=== PATIENT | male | born 1950 | race Two or more races ===

== ENCOUNTER 2023-09-15 17:34 | Emergency (ER) | payer OTHER ==
[~2023-09-15] VITALS: Ht 170.2 cm; Wt 79.9 kg
[~2023-09-15 17:34] MED LIST: AML5T PO; AUG875T PO; BLOO1KIT60 XX; HYDR-4297 PO; LINA5TAB PO; TAMS-35 PO
[2023-09-15] MEDS ORDERED: ACETAMINOPHEN 500 MG TAB PO ONE (19:00)
[2023-09-15 19:25] LABS: Basophils # (auto) 0 10 ^3/uL (0-0.2); Basophils % (auto) 0.3 % (0.0-2.0); Eosinophils # (auto) 0.1 10 ^3/uL (0-0.8); Eosinophils % (auto) 1.1 % (0.0-7.0); Hematocrit 40.7 % (41.0-53.0); Lymphocytes # (auto) 0.5 10 ^3/uL (0.4-5.4); Lymphocytes % (auto) 5.4 % (10.0-50.0); Mean Corpuscular Hemoglobin 29.9 pg (28.0-32.0); Mean Corpuscular Hgb Conc. 34.5 g/dL (32.0-36.0); Mean Corpuscular Volume 86.8 fL (80.0-100.0); Monocytes % (auto) 11.1 % (0.0-12.0); Neutrophils # (auto) 7.1 10 ^3/uL (1.6-8.6); Neutrophils % (auto) 82.1 % (37.0-80.0); Red Blood Cells 4.69 10^6/uL (4.5-5.90); Red Cell Distribution Width 13.2 % (11.8-14.3); White Blood Cell 8.7 10^3/uL (4.4-10.8)
[2023-09-15 19:38] LABS: Alanine Aminotransferase 27 U/L (7-40); Albumin 3.9 g/dL (3.2-4.8); Alkaline Phosphatase 117 U/L (46-116); Anion Gap 7 (5-15); Aspartate Aminotransferase 28 U/L (13-40); BUN/Creatinine Ratio 9.8 (10.0-20.0); Bilirubin, Total 0.9 mg/dL (0.2-1.0); Blood Urea Nitrogen 12 mg/dL (9-23); Calcium 8.5 mg/dL (8.7-10.4); Carbon Dioxide 24 mmol/L (20-30); Chloride 100 mmol/L (98-107); Glucose 163 mg/dL (74-106); Lipase 55 U/L (12-53); Potassium 3.9 mmol/L (3.5-5.1); Sodium 131 mmol/L (136-145); Total Protein 6.5 g/dL (5.7-8.2)
[2023-09-15 22:26] LABS: Urine Bacteria NONE SEEN /hpf (None Seen); Urine Blood TRACE /uL (Negative); Urine Clarity Clear (Clear); Urine Color Yellow (Yellow); Urine Protein, UAD 1+ (Negative); Urine Specific Gravity 1.015 (1.001-1.035); Urine Urobilinogen Normal (Negative); Urine WBC 49 /hpf (0 - 3)
[2023-09-15 22:32] VITALS: PULSE 85; RESP 18; O2SAT 96
[2023-09-15 22:42] LABS: COVID19 ANTIGEN SOFIA FIA NEGATIVE (NEGATIVE); Rapid Influenza A Negative (Negative); Rapid Influenza B Negative (Negative)
[2023-09-15] MEDS ORDERED: IBUPROFEN 600 MG TAB PO ONE (23:45)
[2023-09-15] MEDS ORDERED: ACET500T58 PO (23:52)
[2023-09-15] MEDS ORDERED: LEVO750T8 PO (23:52)
[2023-09-16 00:24] VITALS: BP 129/54; PULSE 67; RESP 20; TEMP 98.6; O2SAT 97
== END 2023-09-16 00:28 | disposition home or self-care (01) ==
LOC: ER 17:34
DX: N30.90 Cystitis, unspecified without hematuria (principal); N40.1 Benign prostatic hyperplasia with lower urinary tract symptoms; N13.8 Other obstructive and reflux uropathy; R51.9 Headache, unspecified; Z79.899 Other long term (current) drug therapy; Z20.822 Contact with and (suspected) exposure to COVID-19
CPT/HCPCS: 36415; 70450; 71250; 74176; 80053; 81001; 83690; 84484; 85025; 87426; 87804; 93005

== ENCOUNTER 2023-09-21 02:07 | Emergency (ER) | payer OTHER ==
[~2023-09-21] VITALS: Ht 170.2 cm; Wt 88.0 kg
[~2023-09-21 02:07] MED LIST changes: +ACET500T58 PO; +LEVO750T8 PO
[2023-09-21] MEDS ORDERED: SODIUM CHLORIDE 0.9% 1,000 ML IV ONE ×2 (02:30→07:45)
[2023-09-21 02:58] LABS: Basophils # (auto) 0 10 ^3/uL (0-0.2); Basophils % (auto) 0.1 % (0.0-2.0); Eosinophils # (auto) 0.1 10 ^3/uL (0-0.8); Eosinophils % (auto) 0.9 % (0.0-7.0); Hematocrit 44.4 % (41.0-53.0); Hemoglobin 14.9 g/dL (13.5-17.5); Lymphocytes # (auto) 0.4 10 ^3/uL (0.4-5.4); Lymphocytes % (auto) 2.9 % (10.0-50.0); Mean Corpuscular Hemoglobin 28.8 pg (28.0-32.0); Mean Corpuscular Hgb Conc. 33.5 g/dL (32.0-36.0); Mean Corpuscular Volume 86.1 fL (80.0-100.0); Monocytes # (auto) 0.9 10 ^3/uL (0-1.3); Monocytes % (auto) 6.9 % (0.0-12.0); Neutrophils # (auto) 12.2 10 ^3/uL (1.6-8.6); Neutrophils % (auto) 89.2 % (37.0-80.0); Nucleated Red Blood Cells % 0.1 %; Red Blood Cells 5.16 10^6/uL (4.5-5.90); Red Cell Distribution Width 13.2 % (11.8-14.3); White Blood Cell 13.7 10^3/uL (4.4-10.8)
[2023-09-21 03:08] LABS: Alanine Aminotransferase 143 U/L (7-40); Albumin 3.5 g/dL (3.2-4.8); Alkaline Phosphatase 392 U/L (46-116); Anion Gap 10 (5-15); Aspartate Aminotransferase 141 U/L (13-40); BUN/Creatinine Ratio 8.5 (10.0-20.0); Blood Urea Nitrogen 10 mg/dL (9-23); Calcium 8.3 mg/dL (8.7-10.4); Carbon Dioxide 22 mmol/L (20-30); Chloride 98 mmol/L (98-107); Glucose 147 mg/dL (74-106); Potassium 3.3 mmol/L (3.5-5.1); Sodium 130 mmol/L (136-145)
[2023-09-21 03:09] LABS: Bilirubin, Total 2.1 mg/dL (0.2-1.0); Total Protein 6.4 g/dL (5.7-8.2)
[2023-09-21] MEDS ORDERED: PIPERACILLIN-TAZOB 3.375GM 100 ML IV ONE (03:15)
[2023-09-21 03:16] LABS: Urine Bacteria NONE SEEN /hpf (None Seen); Urine Blood TRACE /uL (Negative); Urine Clarity Clear (Clear); Urine Color Yellow (Yellow); Urine Protein, UAD TRACE (Negative); Urine Specific Gravity 1.015 (1.001-1.035); Urine WBC 3 /hpf (0 - 3); Urine pH 6.5 (5.0-8.0)
[2023-09-21 03:53] VITALS: PULSE 79; RESP 20; O2SAT 97
[2023-09-21] MEDS ORDERED: ONDANSETRON HCL 4 MG/2 ML VIAL IV PRN (07:45)
[2023-09-21] MEDS ORDERED: hydrALAZINE HCL 20 MG/ML VL IV PRN (07:45)
[2023-09-21] MEDS ORDERED: DEXTROSE (50%) 50ML SYRG IV PRN (07:45)
[2023-09-21] MEDS ORDERED: MORPHINE SULFATE INJ 2 MG/ml SYRG IV PRN ×2 (07:45→09:45)
[2023-09-21 09:16] LABS: Triglycerides 122 mg/dL (< 150)
[2023-09-21 09:17] LABS: LDL Cholesterol 79 mg/dL (< 100)
[2023-09-21 09:18] LABS: Cholesterol 136 mg/dL (< 200); HDL Cholesterol 31 mg/dL (40-59)
[2023-09-21] MEDS ORDERED: LACTATED RINGER'S 1,000 ML IV SCH (09:45)
[2023-09-21 10:02] VITALS: PULSE 74; RESP 19; O2SAT 96
[2023-09-21] MEDS ORDERED: InsuLIN REG 1unit/0.01ml Soln (100units/ml) SC SCH (11:30)
[2023-09-21] MEDS ORDERED: ACCU-CHEK COMFORT CURVE STRIP VI SCH (11:30)
[2023-09-21] MEDS ORDERED: PIPERACILLIN-TAZOB 3.375GM 100 ML IV SCH (12:00)
[2023-09-21] MEDS: POTASSIUM CHL 20MEQ/100ML 100 ML IV SCH ×2 (12:49→17:58)
[2023-09-21 15:00] VITALS: PULSE 67; RESP 16; TEMP 97.9; O2SAT 95
[2023-09-21] MEDS ORDERED: TAMS-35 PO (17:23)
[2023-09-21 18:00] VITALS: BP 131/61; PULSE 73; RESP 16; O2SAT 96
[2023-09-21] MEDS ORDERED: TAMSULOSIN HYDROCHLORIDE 0.4 MG CAP PO SCH (18:00)
[2023-09-21] MEDS ORDERED: AUG875T PO (18:29)
[2023-09-22 11:01] LABS: Hepatitis A Total Antibody Positive (Negative)
[2023-09-22 11:02] LABS: Hepatitis B Surface Antibody Negative (Negative)
[2023-09-22 11:03] LABS: Hepatitis B Core Total AB Negative (Negative); Hepatitis B Surface Antigen Negative (Negative); Hepatitis C Antibody Negative (Negative)
== END 2023-09-21 20:33 | disposition home or self-care (01) ==
LOC: ER 02:07 → SUATTDRO 08:44 → ER 20:33
PROVIDERS: ATTEND Student in an Organized Health Care Education/Training Program
DX: K85.10 Biliary acute pancreatitis without necrosis or infection (principal); Z79.899 Other long term (current) drug therapy
CPT/HCPCS: 36415; 71045; 74176; 74181; 76705; 80053; 80061; 81001; 82248; 82962; 83605; 83690; 83735; 83880; 84484; 85025; 86704; 86706; 86708; 86803; 87040; 87086; 87340; 93005; 96365; 96366; 99285; J1815; J2543; J3480; 96372

== ENCOUNTER 2023-10-10 12:23 | Emergency (ER) | payer OTHER ==
[~2023-10-10] VITALS: Ht 170.2 cm; Wt 78.6 kg
[2023-10-10 20:35] VITALS: BP 175/75; PULSE 67; RESP 18; TEMP 97.3; O2SAT 98
== END 2023-10-10 20:35 | disposition home or self-care (01) ==
LOC: ER 12:23
DX: Z46.6 Encounter for fitting and adjustment of urinary device (principal); T83.9XXA Unspecified complication of genitourinary prosthetic device, implant and graft, initial encounter; I10 Essential (primary) hypertension; E11.9 Type 2 diabetes mellitus without complications; Z79.2 Long term (current) use of antibiotics; Z79.899 Other long term (current) drug therapy
CPT/HCPCS: 51702

== ENCOUNTER 2023-10-24 14:24 | Emergency (ER) | payer OTHER ==
[~2023-10-24] VITALS: Ht 170.2 cm; Wt 74.5 kg
[2023-10-24 22:04] LABS: Urine Bacteria FEW /hpf (None Seen); Urine Blood 2+ /uL (Negative); Urine Clarity CLOUDY (Clear); Urine Color Yellow (Yellow); Urine Mucus FEW (None Seen); Urine Protein, UAD 2+ (Negative); Urine Specific Gravity 1.014 (1.001-1.035); Urine Urobilinogen Normal (Negative); Urine WBC 605 /hpf (0 - 3); Urine WBC Clumps PRESENT /hpf (None Seen)
[2023-10-24] MEDS ORDERED: cefTRIAXone SOD 1,000 MG VL IM ONE (22:15)
[2023-10-24] MEDS ORDERED: SULF800T23 PO (22:39)
[2023-10-24 22:58] VITALS: BP 181/75; PULSE 63; RESP 18; TEMP 98.2; O2SAT 97
== END 2023-10-24 23:20 | disposition home or self-care (01) ==
LOC: ER 14:24
DX: N39.0 Urinary tract infection, site not specified (principal); E11.9 Type 2 diabetes mellitus without complications; I10 Essential (primary) hypertension
CPT/HCPCS: 81001; 96372; 99283; J0696